=== PATIENT | male | born 1965 | race Caucasian/White ===

== ENCOUNTER 2022-10-04 14:50 | Emergency (ER) | payer OTHER ==
--- NOTE | 2022-10-04 15:15 | ERPHSYRPT ---
- History of Present Illness Time Seen by Provider: 10/04/22 15:00 Source: patient Exam Limitations: no limitations Patient Subjective Stated Complaint: pt to ER with complaints of R hand swelling since this morning. pt has hx of carpal tunnel and arthritis. Triage Nursing Assessment: Ambulatory, skin pwd. A&Ox4. pt with swelling to R hand. Physician History: Patient is a 56-year-old white male who presents with pain and swelling of the right wrist. He reports he has longstanding arthritis in both wrist and hands he also has been diagnosed with carpal tunnel on the right hand. He has not been imaged but has seen someone about carpal tunnel surgery. Occurred: other Quality: aching, other (This is a longstanding chronic problem. Paresthesias) Severity of Pain-Max: moderate Severity of Pain-Current: moderate Extremities Pain Location: wrist: right, hand: right Modifying Factors: Improves With: cold therapy Allergies/Adverse Reactions: No Known Drug Allergies Allergy (Verified 10/04/22 15:02) Hx Tetanus, Diphtheria Vaccination/Date Given: Yes Hx Influenza Vaccination/Date Given: Yes Hx Pneumococcal Vaccination/Date Given: Yes Immunizations Up to Date: Yes Travel Risk - International Travel Have you traveled outside of the country in past 3 weeks: No - Coronavirus Screening Are you exhibiting any of the following symptoms?: No Close contact with a COVID-19 positive Pt in past 14-21 Days: No - Vaccine Status Have you recieved a Covid-19 vaccination: Yes [employer]: Unknown - Vaccination Dates Dates if Unknown: unk - Review of Systems Constitutional: No Fever, No Chills Eyes: No Symptoms Ears, Nose, & Throat: No Symptoms Respiratory: No Cough, No Dyspnea Cardiac: No Chest Pain, No Edema, No Syncope Abdominal/Gastrointestinal: No Abdominal Pain, No Nausea, No Vomiting, No Diarrhea Genitourinary Symptoms: No Dysuria Musculoskeletal: Joint Redness, Joint Pain, Joint Swelling, No Back Pain, No Neck Pain Skin: No Rash Neurological: No Dizziness, No Focal Weakness, No Sensory Changes Psychological: No Symptoms Endocrine: No Symptoms All Other Systems: Reviewed and Negative - Past Medical History Pertinent Past Medical History: Yes Neurological History: No Pertinent History ENT History: No Pertinent History Cardiac History: Hypertension, Other Respiratory History: No Pertinent History Endocrine Medical History: No Pertinent History Musculoskeletal History: Arthritis, Other GI Medical History: GERD History: No Pertinent History Psycho-Social History: Depression Male Reproductive Disorders: No Pertinent History Other Medical History: irregular heart rate, carpal tunnel - Past Surgical History Past Surgical History: Yes Neuro Surgical History: No Pertinent History Cardiac: No Pertinent History Respiratory: No Pertinent History Gastrointestinal: No Pertinent History Genitourinary: No Pertinent History Musculoskeletal: Other Male Surgical History: No Pertinent History Other Surgical History: reconstructive surgery rt knee, torn ligaments - Social History Smoking Status: Never smoker Exposure to second hand smoke: Yes Drug Use: none Patient Lives Alone: No - Nursing Vital Signs Nursing Vital Signs: Initial Vital Signs Temperature 96.5 F 10/04/22 14:55 Pulse Rate 72 10/04/22 14:55 Respiratory Rate 16 10/04/22 14:55 Blood Pressure 133/90 10/04/22 14:55 O2 Sat by Pulse Oximetry 95 10/04/22 14:55 Pain Scale Pain Intensity 6 - Physical Exam General Appearance: mild distress, alert Eyes, Ears, Nose, Throat Exam: moist mucous membranes Neck Exam: non-tender, supple Cardiovascular/Respiratory Exam: chest non-tender, normal breath sounds, regular rate/rhythm, no respiratory distress Abdominal Exam: non-tender, No guarding Back Exam: normal inspection, No vertebral tenderness Shoulder Exam: normal inspection, non-tender Elbow/Forearm Exam: normal inspection, non-tender Wrist Exam: bone tenderness, deformity, limited ROM, soft tissue tenderness, swelling Hand Exam: soft tissue tenderness, stiffness, swelling Neuro/Tendon Exam: normal sensation, normal motor functions Mental Status Exam: alert, oriented x 3, cooperative Skin Exam: normal color, warm, dry SpO2 Interpretation: normal SpO2: 95 O2 Delivery: Room Air - Course Nursing assessment & vital signs reviewed: Yes - Radiology Exams Right Wrist X-ray Interpretation: Interpreted by me (Severe degenerative changes) Right Hand X-ray Interpretation: Interpreted by me (Severe degenerative changes) Ordered Tests: Active Orders 24 hr Category Date Time Status HAND (MINIMUM 3 VIEWS) Stat Exams 10/04/22 15:07 Ordered WRIST (MIN 3 VIEWS) Stat Exams 10/04/22 15:06 Ordered - Progress Progress: unchanged Medical Desision Making - Diagnostic Testing Radiological Interpretation: Interpreted by me - Risk of complications Low Risk: Low risk of morbidity from additional dx testing or treatment - Departure Departure Disposition: Home Clinical Impression: Arthritis Condition: Stable Critical Care Time: No Referrals: MATY MENDOZA [Primary Care Provider] - Follow up/PCP as directed Instructions: Hand Pain (DC) Prescriptions: Prednisone 20 mg [Deltasone 20 mg] 20 mg PO BID 5 Days #10 tablet
[2022-10-04] MEDS ORDERED: Kenalog-40 IM ONE (15:18)
[2022-10-04] MEDS ORDERED: Kenalog-40 ONE (15:20)
[2022-10-04 15:41] VITALS: BP 126/85; PULSE 76; O2SAT 97
--- NOTE | 2022-10-04 16:27 | XRAY ---
Indication: Pain. Comparison: None 3 view right wrist demonstrates osteopenia, moderate/advanced 1st metacarpal multangular scaphoid degenerative changes, advanced radiocarpal joint space loss with bony remodeling distal radius, 2 subcentimeter ulnocarpal heterotopic ossifications, and old 5th metacarpal fracture. No other bony, articular, or soft tissue abnormalities.
--- NOTE | 2022-10-04 16:30 | XRAY ---
Indication: Pain. Comparison: None 3 view right hand now demonstrates osteopenia, mild degenerative changes all IP joints, advanced 1st metacarpal multangular scaphoid degenerative changes, old distal 1st phalanx fracture, and old 5th metacarpal fracture. No acute bony, articular, or soft tissue abnormalities. Wrist reported separately.
== END 2022-10-04 15:40 | disposition home or self-care (01) ==
LOC: ED 14:50
DX: M19.031 Primary osteoarthritis, right wrist (principal); M19.041 Primary osteoarthritis, right hand; I10 Essential (primary) hypertension; Z79.52 Long term (current) use of systemic steroids
CPT/HCPCS: 73110; 73130; 96372; 99283; J3301